=== PATIENT | male | born 1960 | race Caucasian/White ===

== ENCOUNTER 2016-11-26 21:33 | Observation (INO) | payer MEDICAID, MEDICARE ==
[~2016-11-26] VITALS: Ht 172.7 cm; Wt 120.0 kg
[~2016-11-26 21:33] MED LIST: ASPI81TA11 PO; CEPH500C3 PO; GLUCTAB PO; HYDR-3533 PO; LEVEMIR SQ; LISI-357 PO; OMPR20CCR PO; TRAZ50TA4 PO; Z.0.WALKERFRONT
[2016-11-26 21:43] VITALS: BP 163/95; PULSE 78; RESP 24; TEMP 98.9; O2SAT 98
[2016-11-26 21:51] VITALS: BP 168/94; PULSE 74; RESP 16; TEMP 98.4; O2SAT 97
[2016-11-26] MEDS ORDERED: ONDANSETRON HCL 4 MG/2 ML VIAL ONE (22:06)
[2016-11-26] MEDS ORDERED: MORPHINE SULFATE 4 MG/ML INJ IV PUSH ONE (22:15)
[2016-11-26] MEDS ORDERED: ONDANSETRON HCL 4 MG/2 ML VIAL IV PUSH ONE (22:15)
[2016-11-26] MEDS ORDERED: ORPHENADRINE INJ 60 MG/2 ML AMP IM ONE (22:15)
--- NOTE | 2016-11-26 22:19 | RADRPT ---
EXAM DATE/TIME: 11/26/2016 21:45 [facility] COMPARISON: CHEST SINGLE AP, September 06, 2015, 1:46. INDICATIONS : Short of breath. MEDICAL HISTORY : None. SURGICAL HISTORY : None. ENCOUNTER: Initial ACUITY: 1 day PAIN SCORE: 0/10 LOCATION: Bilateral chest FINDINGS: The lungs are clear without infiltrate, nodule, or mass. There is no appreciable pleural effusion fo r technique. Heart and mediastinum are unremarkable. CONCLUSION: No acute cardiopulmonary disease. Mecca Kc MD on November 26, 2016 at 22:17 Board Certified Radiologist. This report was verified electronically.
--- NOTE | 2016-11-26 22:27 | RADRPT ---
EXAM DATE/TIME: 11/26/2016 22:17 [facility] COMPARISON: CT BRAIN W/O CONTRAST, August 06, 2015, 0:04. INDICATIONS : Cephalgia. Unable to ambulate. Right side weakness. RADIATION DOSE: 37.48 CTDIvol (mGy) MEDICAL HISTORY : Stroke. Myocardial infarction. Hepatitis C.Diabetes. SURGICAL HISTORY : None. ENCOUNTER: Initial ACUITY: 1 day PAIN SCALE: 10/10 LOCATION: cranial TECHNIQUE: Multiple contiguous axial images were obtained of the head. Using automated exposure control and adj ustment of the mA and/or kV according to patient size, radiation dose was kept as low as reasonably a chievable to obtain optimal diagnostic quality images. DICOM format image data is available electro nically for review and comparison. FINDINGS: There is no evidence for intracranial hemorrhage, mass effect, mass lesions, edema, or extra-axial fl uid collections. The visualized bony structures appear intact. The ventricles are normal size for t he patient's age. There are no signs of acute infarction for technique. There are punctate lucencies in the patient's skull chronic in nature and not significantly changed of indeterminate etiology. CONCLUSION: There is no evidence of any significant hemorrhage or mass effect. Mecca Kc MD on November 26, 2016 at 22:24 Board Certified Radiologist. This report was verified electronically.
[2016-11-26] MEDS ORDERED: LISI-515 PO (22:37)
[2016-11-26] MEDS ORDERED: PROP40TA3 PO (22:37)
[2016-11-26] MEDS ORDERED: PARO20TA2 PO (22:37)
[2016-11-26] MEDS ORDERED: POTA10CA PO (22:37)
[2016-11-26] MEDS ORDERED: ATOR40TA16 PO (22:37)
[2016-11-26] MEDS ORDERED: METF500T PO (22:37)
[2016-11-26] MEDS ORDERED: RISP0.5T2 PO (22:37)
[2016-11-26] MEDS ORDERED: HYDR12.56 PO (22:37)
[2016-11-26] MEDS ORDERED: PANT40TA3 PO (22:37)
[2016-11-26] MEDS ORDERED: CELE1CAP6 PO (22:37)
[2016-11-26] MEDS ORDERED: FOLI1TAB6 PO (22:37)
[2016-11-26] MEDS ORDERED: GABA100C4 PO (22:37)
--- NOTE | 2016-11-26 22:40 | PD ---
HPI Chief Complaint: Chest Pain Time Seen by Provider: 21:51 Travel History International Travel<30 days: No Contact w/Intl Traveler<30days: No Traveled to known affect area: No History of Present Illness HPI 55-year-old male brought in by EMS with unusual story of seen spots of light in front of his eyes and then falling backwards hitting the back of his head. Patient supposedly has a history of CVA with right-sided weakness of the arm and leg. Patient also complaining of right-sided back spasms since his fall. Patient states a local passerby helped him up after he fell and he called the ambulance. Patient states no headache although he does have tenderness in the posterior scalp. He states the visual disturbances he was having are now improved. His biggest complaint is of his back pain and spasm. Patient reportedly lives in [place], but sees his doctor in [place]. Patient is allergic to diphenhydramine [facility] Past Medical History Hx Anticoagulant Therapy: No Arthritis: No Asthma: Yes Autoimmune Disease: No Blood Disorders: No Heart Rhythm Problems: No Cancer: No High Cholesterol: Yes Chemotherapy: No Chest Pain: Yes Congestive Heart Failure: No Cerebrovascular Accident: Yes (RIGHT SIDED WEAKNESS) Diabetes: Yes Patient Takes Glucophage: Yes Diminished Hearing: No Endocrine: Yes Gastrointestinal Disorders: Yes (ESPOHOGEAL VERICIES) GERD: No Genitourinary: No Hepatitis: Yes (HEP C previous) Hiatal Hernia: No Hypertension: No Immune Disorder: No Kidney Stones: No Musculoskeletal: No Neurologic: No Psychiatric: No Reproductive: No Respiratory: Yes Immunizations Current: Yes Myocardial Infarction: No Radiation Therapy: No Sleep Apnea: Yes Thyroid Disease: No Ulcer: No Tetanus Vaccination: Unknown Influenza Vaccination: Yes Past Surgical History Abdominal Surgery: No Cardiac Surgery: No Cholecystectomy: Yes Ear Surgery: No Endocrine Surgery: No Eye Surgery: No Genitourinary Surgery: No Gynecologic Surgery: No Neurologic Surgery: Yes (L1 L3 SURGERY APPROX 2 1/[address] BLUM) Thoracic Surgery: No Other Surgery: Yes Social History Alcohol Use: Yes (DAILY) Tobacco Use: No Substance Use: No Allergies-Medications (Allergen,Severity, Reaction): Coded Allergies: diphenhydramine (Unverified Allergy, Severe, Anaphylaxis, 09/24/16) Reported Meds & Prescriptions Reported Meds & Active Scripts Active Reported Metformin (Metformin HCl) 500 Mg Tab 500 Mg PO BIDPC Pantoprazole (Pantoprazole Sodium) 40 Mg Tab 40 Mg PO DAILY Paroxetine (Paroxetine HCl) 20 Mg Tab 20 Mg PO DAILY Propranolol (Propranolol HCl) 40 Mg Tab 40 Mg PO Q12HR Gabapentin 100 Mg Cap 100 Mg PO DAILY Folic Acid 1 Mg Tablet 1 Tab PO DAILY Lisinopril 20 Mg Tab 20 Mg PO DAILY Risperidone 0.5 Mg Tab 0.5 Mg PO Q12HR Potassium Chloride ER (Potassium Chloride) 10 Meq Cap 10 Meq PO DAILY Review of Systems Except as stated in HPI: all other systems reviewed are Neg General / Constitutional: No: Fever Eyes: No: Visual changes HENT: No: Headaches Cardiovascular: No: Chest Pain or Discomfort Respiratory: No: Shortness of Breath Gastrointestinal: No: Abdominal Pain Genitourinary: No: Dysuria Musculoskeletal: No: Pain Skin: No Rash Neurologic: No: Weakness Psychiatric: No: Depression Endocrine: No: Polydipsia Hematologic/Lymphatic: No: Easy Bruising Physical Exam Narrative GENERAL: Patient appears to be pain out of proportion which is intermittent and apparently spasmodic. SKIN: Warm and dry. Normal color. Normal turgor. No signs of trauma. HEAD: Atraumatic. Normocephalic. No obvious signs of contusion or abrasion although patient complains of discomfort with palpation of the lower posterior scalp. EYES: Pupils equal and round. No scleral icterus. No injection or drainage. ENT: No nasal bleeding or discharge. Mucous membranes pink and moist. No dental injury. Pharynx is clear. Airway is patent. NECK: Trachea midline. No bony tenderness or step-off. Range of motion is supple. CARDIOVASCULAR: Regular rate and rhythm. RESPIRATORY: No accessory muscle use. Clear to auscultation. Breath sounds equal bilaterally. GASTROINTESTINAL: Abdomen soft, non-tender, nondistended. Hepatic and splenic margins not palpable. MUSCULOSKELETAL: Extremities without clubbing, cyanosis, or edema. No obvious deformities. Patient complains of pain with palpation of the soft tissues of the right upper trapezius and lower thoracic and lumbar spine on the right. Patient is noted to be moving his right lower leg and arm when distracted. There are no abrasions or open wounds. NEUROLOGICAL: Awake and alert. No obvious cranial nerve deficits. Motor grossly within normal limits. Five out of 5 muscle strength in the arms and legs. Normal speech. PSYCHIATRIC: Appropriate mood and affect; insight and judgment normal. Data Data Last Documented VS Vital Signs Date Time Temp Pulse Resp B/P (MAP) Pulse Ox O2 Delivery O2 Flow Rate FiO2 11/27/16 00:35 78 18 156/77 (103) 98 Room Air 11/26/16 21:51 98.4 2.00 Orders Orders Electrocardiogram (11/26/16 21:40) Complete Blood Count With Diff (11/26/16 21:40) Ckmb (Isoenzyme) Profile (11/26/16 21:40) Troponin I (11/26/16 21:40) Chest, Single Ap (11/26/16 21:40) Iv Access Insert/Monitor (11/26/16 21:40) Ecg Monitoring (11/26/16 21:40) Oxygen Administration (11/26/16 21:40) Oximetry (11/26/16 21:40) Ct Brain W/O Iv Contrast(Rout) (11/26/16 22:01) Orphenadrine Inj (Norflex Inj) (11/26/16 22:15) Morphine Inj (Morphine Inj) (11/26/16 22:15) Comprehensive Metabolic Panel (11/26/16 22:01) Coag Profile (11/26/16 22:01) Ondansetron Inj (Zofran Inj) (11/26/16 22:15) Ondansetron Inj (Zofran Inj) (11/26/16 22:06) Potassium Chloride (Kcl) (11/26/16 23:45) CKMB (11/26/16 22:15) CKMB% (11/26/16 22:15) Place In Observation (11/27/16 ) Vital Signs (Adult) Q4H (11/27/16 02:39) Activity Oob With Assistance (11/27/16 02:39) Fabricating Machine Operator / Telemetry .CONTINUOUS (11/27/16 02:39) Sodium Chloride 0.9% Flush (Ns Flush) (11/27/16 02:45) Sodium Chloride 0.9% Flush (Ns Flush) (11/27/16 09:00) Ondansetron Inj (Zofran Inj) (11/27/16 02:45) Basic Metabolic Panel (Bmp) (11/28/16 06:00) Complete Blood Count With Diff (11/28/16 06:00) Pt Request For Service (11/27/16 02:39) Case Management Consult (11/27/16 02:39) Naloxone Inj (Narcan Inj) (11/27/16 02:45) ^ Other Nursing Orders (11/27/16 02:43) Admit Order (Ed Use Only) (11/27/16 02:42) Vital Signs (Adult) Q4H (11/27/16 02:42) Activity Bed Rest (11/27/16 02:42) Notify Dr: Other (11/27/16 02:42) Labs Laboratory Tests Test 11/26/16 03:29 11/26/16 22:15 White Blood Count 7.4 TH/MM3 Red Blood Count 4.71 MIL/MM3 Hemoglobin 13.8 GM/DL Hematocrit 39.2 % Mean Corpuscular Volume 83.2 FL Mean Corpuscular Hemoglobin 29.3 PG Mean Corpuscular Hemoglobin Concent 35.2 % Red Cell Distribution Width 14.8 % Platelet Count 117 TH/MM3 Mean Platelet Volume 7.5 FL Neutrophils (%) (Auto) 50.1 % Lymphocytes (%) (Auto) 29.0 % Monocytes (%) (Auto) 14.5 % Eosinophils (%) (Auto) 5.9 % Basophils (%) (Auto) 0.5 % Neutrophils # (Auto) 3.7 TH/MM3 Lymphocytes # (Auto) 2.2 TH/MM3 Monocytes # (Auto) 1.1 TH/MM3 Eosinophils # (Auto) 0.4 TH/MM3 Basophils # (Auto) 0.0 TH/MM3 CBC Comment DIFF FINAL Differential Comment Prothrombin Time 12.0 SEC Prothromb Time International Ratio 1.1 RATIO Activated Partial Thromboplast Time 25.4 SEC Blood Urea Nitrogen 7 MG/DL Creatinine 1.18 MG/DL Random Glucose 103 MG/DL Total Protein 8.0 GM/DL Albumin 3.5 GM/DL Calcium Level 8.7 MG/DL Alkaline Phosphatase 131 U/L Aspartate Amino Transf (AST/SGOT) 46 U/L Alanine Aminotransferase (ALT/SGPT) 40 U/L Total Bilirubin 2.0 MG/DL Sodium Level 135 MEQ/L Potassium Level 3.0 MEQ/L Chloride Level 101 MEQ/L Carbon Dioxide Level 22.4 MEQ/L Anion Gap 12 MEQ/L Estimat Glomerular Filtration Rate 65 ML/MIN Total Creatine Kinase 352 U/L Creatine Kinase MB 7.2 NG/ML Creatine Kinase MB % 2.0 % Troponin I 0.02 NG/ML MDM Medical Decision Making Medical Screen Exam Complete: Yes Emergency Medical Condition: Yes Medical Record Reviewed: Yes Differential Diagnosis Possible TIA. CVA. Fall. Malingering. Migraine syndrome. Muscle spasm. Back pain. Narrative Course Patient is medically stable at time of exam per Chest x-ray and cardiac panel and CBC CMP are ordered per protocol. CT of the head without contrast is ordered. IV access is obtained patient is given 4 mg morphine IV as well as milligrams Zofran IV as well as 60 mg Norflex IM. Chest x-ray is unremarkable for acute process. EKG shows normal sinus rhythm without ST changes. CBC, CMP are unremarkable. Troponin is negative CT of the head is negative for acute process per radiologist. 2300 hrs., patient is discussed with Dr. Tran and care of the patient is turned over to him for final disposition. Scripts Thiamine (Vitamin B-1) 100 Mg Tab 100 MG PO DAILY for Nutritional Supplement, #30 TAB 0 Refills Prov: Vlad Duggan MD 11/28/16 Condition: Stable Adi Olmstead Nov 26, 2016 22:40
[2016-11-26] MEDS ORDERED: CYCL1TAB29 PO (22:42)
[2016-11-26] MEDS ORDERED: TRAM50TA PO (22:42)
[2016-11-26 22:45] LABS: ALT (GPT) 40 U/L (12-78); ANION GAP 12 MEQ/L (5-15); AST (GOT) 46 U/L (15-37); BICARBONATE 22.4 MEQ/L (21.0-32.0); BLOOD UREA NITROGEN 7 MG/DL (7-18); CHLORIDE 101 MEQ/L (98-107); GLOMERULAR FILTRATION RATE 65 ML/MIN (>89); SODIUM (NA) 135 MEQ/L (136-145)
[2016-11-26 22:47] LABS: ALKALINE PHOSPHATASE 131 U/L (45-117)
[2016-11-26 22:48] LABS: APTT (PATIENT) 25.4 SEC (24.3-30.1); INTERNATIONAL NORMALIZED RATIO 1.1 RATIO
[2016-11-26] MEDS ORDERED: POTASSIUM CHLORIDE 10 MEQ CONTROLLED RELEASE TAB PO ONE (23:45)
[2016-11-27] VITALS (11 sets, daily range): BP systolic 107–160; BP diastolic 58–87; PULSE 60–78; RESP 18–20; TEMP 97.4–98.2; O2SAT 95–98
[2016-11-27 01:54] LABS: CKMB 7.2 NG/ML (0.5-3.6)
--- NOTE | 2016-11-27 02:42 | PD ---
Physical Exam Narrative GENERAL: SKIN: Warm and dry. HEAD: Atraumatic. Normocephalic. EYES: Pupils equal and round. No scleral icterus. No injection or drainage. ENT: No nasal bleeding or discharge. Mucous membranes pink and moist. NECK: Trachea midline. No JVD. CARDIOVASCULAR: Regular rate and rhythm. RESPIRATORY: No accessory muscle use. Clear to auscultation. Breath sounds equal bilaterally. GASTROINTESTINAL: Abdomen soft, non-tender, nondistended. Hepatic and splenic margins not palpable. MUSCULOSKELETAL: Extremities without clubbing, cyanosis, or edema. No obvious deformities. NEUROLOGICAL: Awake and alert. PATIENT IS NOT MOVING HIS RIGHT UE AND RLE BUT HAS GREAT TONE, REFLEXES ABNL BECAUSE PT IS HOLDING EXTREMITY STIFF. ARM DROP TEST FAILED FIRST BUT REPEAT TESTING PATIENT. NO FLACCIDITY NOTED. PSYCHIATRIC: Appropriate mood and affect; insight and judgment normal. Data Data Last Documented VS Vital Signs Date Time Temp Pulse Resp B/P (MAP) Pulse Ox O2 Delivery O2 Flow Rate FiO2 11/27/16 00:35 78 18 156/77 (103) 98 Room Air 11/26/16 21:51 98.4 2.00 Orders Orders Electrocardiogram (11/26/16 21:40) Complete Blood Count With Diff (11/26/16 21:40) Ckmb (Isoenzyme) Profile (11/26/16 21:40) Troponin I (11/26/16 21:40) Chest, Single Ap (11/26/16 21:40) Iv Access Insert/Monitor (11/26/16 21:40) Ecg Monitoring (11/26/16 21:40) Oxygen Administration (11/26/16 21:40) Oximetry (11/26/16 21:40) Ct Brain W/O Iv Contrast(Rout) (11/26/16 22:01) Orphenadrine Inj (Norflex Inj) (11/26/16 22:15) Morphine Inj (Morphine Inj) (11/26/16 22:15) Comprehensive Metabolic Panel (11/26/16 22:01) Coag Profile (11/26/16 22:01) Ondansetron Inj (Zofran Inj) (11/26/16 22:15) Ondansetron Inj (Zofran Inj) (11/26/16 22:06) Potassium Chloride (Kcl) (11/26/16 23:45) CKMB (11/26/16 22:15) CKMB% (11/26/16 22:15) Labs Laboratory Tests Test 11/26/16 22:15 Prothrombin Time 12.0 SEC Prothromb Time International Ratio 1.1 RATIO Activated Partial Thromboplast Time 25.4 SEC Blood Urea Nitrogen 7 MG/DL Creatinine 1.18 MG/DL Random Glucose 103 MG/DL Total Protein 8.0 GM/DL Albumin 3.5 GM/DL Calcium Level 8.7 MG/DL Alkaline Phosphatase 131 U/L Aspartate Amino Transf (AST/SGOT) 46 U/L Alanine Aminotransferase (ALT/SGPT) 40 U/L Total Bilirubin 2.0 MG/DL Sodium Level 135 MEQ/L Potassium Level 3.0 MEQ/L Chloride Level 101 MEQ/L Carbon Dioxide Level 22.4 MEQ/L Anion Gap 12 MEQ/L Estimat Glomerular Filtration Rate 65 ML/MIN Total Creatine Kinase 352 U/L Creatine Kinase MB 7.2 NG/ML Creatine Kinase MB % 2.0 % Troponin I 0.02 NG/ML MDM Medical Record Reviewed: Yes Supervised Visit with ROSE: No Physician Communication Physician Communication D/W DR DEWITT HOSPITALIST, WILL ADMIT, NEURO EVAL BUT NO PAIN MEDICATION AT ALL DURING ENTIRE EVAL PERIOD (THIS WAS SHARED WITH PATIENT WHO ACCEPTED THE TERMS) Diagnosis Primary Impression: RIGHT SIDED HEMIPLEGIA V CONVERSION DISORDER Admitting Information Admitting Physician Requests: Nino Hidalgo MD Nov 27, 2016 02:42
[2016-11-27] MEDS ORDERED: NALOXONE HCL 0.4 MG/ML AMP IV PUSH PRN (02:45)
[2016-11-27] MEDS ORDERED: ONDANSETRON HCL 4 MG/2 ML VIAL IVP PRN (02:45)
[2016-11-27] MEDS ORDERED: SODIUM CHLORIDE 0.9% FLUSH 10 ML FLUSH IV FLUSH PRN (02:45)
[2016-11-27] MEDS ORDERED: GADODIAMIDE PF 287 MG/ML 5 ML VIAL (for RAD MRI) IVCONTRAST ONE (02:46)
[2016-11-27 04:04] LABS: AUTOMATED NEUTROPHIL # 3.7 TH/MM3 (1.8-7.7); BASOPHIL % 0.5 % (0.0-2.0); EOSINOPHIL # 0.4 TH/MM3 (0-0.4); EOSINOPHIL % 5.9 % (0.0-4.0); HEMATOCRIT 39.2 % (39.0-51.0); HEMO FLAGS DIFF FINAL; LYMPHOCYTE # 2.2 TH/MM3 (1.0-4.8); MEAN CELL VOLUME 83.2 FL (80.0-100.0); MEAN CORPUSCULAR HEMOGLOBIN 29.3 PG (27.0-34.0); MEAN CORPUSCULAR HGB CONC 35.2 % (32.0-36.0); MONO % 14.5 % (0.0-8.0); NEUT % 50.1 % (16.0-70.0); PLATELET COUNT 117 TH/MM3 (150-450); RED BLOOD COUNT 4.71 MIL/MM3 (4.50-5.90); RED CELL DISTRIBUTION WIDTH 14.8 % (11.6-17.2); WHITE BLOOD COUNT 7.4 TH/MM3 (4.0-11.0)
[2016-11-27] MEDS: SODIUM CHLORIDE 0.9% FLUSH 10 ML FLUSH IV FLUSH SCH ×2 (09:14→21:00)
--- NOTE | 2016-11-27 10:45 | HHI.HP ---
HPI Service [facility] Primary Care Physician Unknown Admission Diagnosis CONVERSION DISORDER V RIGHT SIDED HEMIPLEGIA Diagnoses: Chief Complaint: right sided weakness Travel History International Travel<30 Days: No Contact w/Intl Traveler <30 Da: No Traveled to Known Affected Are: No History of Present Illness Written by Laura Suggs, acting as scribe for Dr. Duggan on 11/27/16 at 10: 42. 55-year-old male with history of diabetes, cirrhosis, varices, depression, neuropathy, chronic back pain, presents with acute onset right sided weakness. The patient states yesterday he started arguing with his significant other. He started walking down [facility] around 10pm when he all of a sudden saw a light, unsure if it was a car, then the next thing he remembers is his legs getting weak and hitting the floor. He denies any loss of consciousness. Denies hitting his head. He was unable to get off the ground with significant right sided weakness. He states he has numbness all the way down his right leg. He denies any chest pain, shortness of breath, lightheadedness, or dizziness. He had a mild headache last night but improved today. Denies any visual changes. Denies any abdominal pain, constipation, diarrhea, or dysuria. He denies any other medical complaints at this time. Review of Systems Except as stated in HPI: all other systems reviewed are Neg Past Family Social History Past Medical History Cirrhosis Varices GI bleed Diabetes Hypertension Hyperlipidemia Depression Neuropathy Chronic back pain Past Surgical History Cholecystectomy Reported Medications Metformin (Metformin HCl) 500 Mg Tab 500 Mg PO BIDPC Pantoprazole (Pantoprazole Sodium) 40 Mg Tab 40 Mg PO DAILY Paroxetine (Paroxetine HCl) 20 Mg Tab 20 Mg PO DAILY Propranolol (Propranolol HCl) 40 Mg Tab 40 Mg PO Q12HR Celecoxib 100 Mg Cap 100 Mg PO BID Gabapentin 100 Mg Cap 100 Mg PO DAILY Folic Acid 1 Mg Tablet 1 Tab PO DAILY Hydrochlorothiazide 12.5 Mg Tab 12.5 Mg PO DAILY Lisinopril 20 Mg Tab 20 Mg PO DAILY Atorvastatin (Atorvastatin Calcium) 40 Mg Tab 40 Mg PO HS Risperidone 0.5 Mg Tab 0.5 Mg PO Q12HR Potassium Chloride ER (Potassium Chloride) 10 Meq Cap 10 Meq PO DAILY Allergies: Coded Allergies: diphenhydramine (Unverified Allergy, Severe, Anaphylaxis, 09/24/16) Active Ordered Medications Current Medications Medications (Trade) Dose Ordered Sig/Xochitl Route Start Time Stop Time Status Last Admin (NS Flush) 2 ml UNSCH PRN IV FLUSH 11/27/16 02:45 (NS Flush) 2 ml BID IV FLUSH 11/27/16 09:00 11/27/16 09:14 (Zofran Inj) 4 mg Q6H PRN IVP 11/27/16 02:45 (Narcan Inj) 0.4 mg UNSCH PRN IV PUSH 11/27/16 02:45 Family History Father with 3 or 4 strokes, and heart disease that started in his 50s Mother fairly healthy Social History Smoked tobacco 1/2 PPD for 10 years, quit 2 years ago Prior alcohol use 2-3 beers occasionally, quit 3-4 months ago because his doctor told him he has cirrhosis of the liver Denies any illicit drug use Used to paint, now on Social Security/Disability Physical Exam Vital Signs Vital Signs Date Time Temp Pulse Resp B/P (MAP) Pulse Ox O2 Delivery O2 Flow Rate FiO2 11/27/16 07:43 98.1 63 18 135/73 (93) 97 11/27/16 07:11 64 11/27/16 04:49 11/27/16 04:47 97.4 64 20 107/58 (74) 96 11/27/16 00:35 78 18 156/77 (103) 98 Room Air 11/26/16 21:51 98.4 74 16 168/94 (118) 97 Nasal Cannula 2.00 11/26/16 21:51 98 Nasal Cannula 2.00 11/26/16 21:51 98 Nasal Cannula 2.00 11/26/16 21:43 98.9 78 24 163/95 (117) 98 Physical Exam GENERAL: Well-nourished, well-developed middle aged male patient in [facility]. SKIN: Warm and dry. No rash. HEAD: Normocephalic. Atraumatic. EYES: Pupils equal and round. No scleral icterus. No injection or drainage. ENT: No nasal bleeding or discharge. Mucous membranes pink and moist. NECK: Supple. Trachea midline. CARDIOVASCULAR: Regular rate and rhythm. S1, S2 noted. No murmur appreciated. RESPIRATORY: No accessory muscle use. Clear to auscultation. Breath sounds equal bilaterally. GASTROINTESTINAL: Abdomen soft, non-tender, nondistended. Normoactive bowel sounds x4. MUSCULOSKELETAL: No obvious deformities. Extremities without clubbing, cyanosis , or edema. NEUROLOGICAL: Awake and alert. No obvious cranial nerve deficits. Motor grossly within normal limits. Patient able to move RUE on distraction but does not participate in strength testing. Right leg flaccid. 5/5 strength LUE/LLE. Absent patellar DTRs bilaterally. Normal speech. PSYCHIATRIC: Appropriate mood and affect; insight and judgment normal. Laboratory Laboratory Tests Test 11/26/16 22:15 Prothrombin Time 12.0 Prothromb Time International Ratio 1.1 Activated Partial Thromboplast Time 25.4 Blood Urea Nitrogen 7 Creatinine 1.18 Random Glucose 103 Total Protein 8.0 Albumin 3.5 Calcium Level 8.7 Alkaline Phosphatase 131 Aspartate Amino Transf (AST/SGOT) 46 Alanine Aminotransferase (ALT/SGPT) 40 Total Bilirubin 2.0 Sodium Level 135 Potassium Level 3.0 Chloride Level 101 Carbon Dioxide Level 22.4 Anion Gap 12 Estimat Glomerular Filtration Rate 65 Total Creatine Kinase 352 Creatine Kinase MB 7.2 Creatine Kinase MB % 2.0 Troponin I 0.02 Result Diagram: 11/26/16 0329 11/26/162214 Imaging Last Impressions Head CT 11/26/162200 Signed Impressions: Service Date/Time: Saturday, November 26, 2016 22:17 - CONCLUSION: There is no evidence of any significant hemorrhage or mass effect. Mecca Kc MD Chest X-Ray 11/26/162139 Signed Impressions: Service Date/Time: Saturday, November 26, 2016 21:45 - CONCLUSION: No acute cardiopulmonary disease. Mecca Kc MD Caprini VTE Risk Assessment Caprini VTE Risk Assessment: Mod/High Risk (score >= 2) Caprini Risk Assessment Model Point Value = 1 Point Value = 2 Point Value = 3 Point Value = 5 Age 41-60 Minor surgery BMI > 25 kg/m2 Swollen legs Varicose veins or History of unexplained or recurrent spontaneous Oral contraceptives or hormone replacement Sepsis (< 1 month) Serious lung disease, including pneumonia (< 1 month) Abnormal pulmonary function Acute myocardial infarction Congestive heart failure (< 1 month) History of inflammatory bowel disease Medical patient at bed rest Age 61-74 Arthroscopic surgery Major open surgery (> 45 min) Laparoscopic surgery (> 45 min) Malignancy Confined to bed (> 72 hours) Immobilizing plaster cast Central venous access Age >= 75 History of VTE Family history of VTE Factor V Leiden Prothrombin [id number] Lupus anticoagulant Anticardiolipin antibodies Elevated serum homocysteine Heparin-induced thrombocytopenia Other congenital or acquired thrombophilia Stroke (< 1 month) Elective arthroplasty Hip, pelvis, or leg fracture Acute spinal cord injury (< 1 month) Prophylaxis Regimen Total Risk Factor Score Risk Level Prophylaxis Regimen 0-1 Low Early ambulation 2 Moderate Order ONE of the following: *Sequential Compression Device (SCD) *Heparin 5000 units SQ BID 3-4 Higher Order ONE of the following medications: *Heparin 5000 units SQ TID *Enoxaparin/Lovenox 40 mg SQ daily (WT < 150 kg, CrCl > 30 mL/min) *Enoxaparin/Lovenox 30 mg SQ daily (WT < 150 kg, CrCl > 10-29 mL/min) *Enoxaparin/Lovenox 30 mg SQ BID (WT < 150 kg, CrCl > 30 mL/min) AND/OR *Sequential Compression Device (SCD) 5 or more Highest Order ONE of the following medications: *Heparin 5000 units SQ TID (Preferred with Epidurals) *Enoxaparin/Lovenox 40 mg SQ daily (WT < 150 kg, CrCl > 30 mL/min) *Enoxaparin/Lovenox 30 mg SQ daily (WT < 150 kg, CrCl > 10-29 mL/min) *Enoxaparin/Lovenox 30 mg SQ BID (WT < 150 kg, CrCl > 30 mL/min) AND *Sequential Compression Device (SCD) Assessment and Plan Problem List: (1) Acute right-sided weakness ICD Code: M62.89 - Other specified disorders of muscle Assessment and Plan 55-year-old male with history of diabetes, cirrhosis, varices, depression, neuropathy, chronic back pain, presents with acute onset right sided weakness. Right Sided Hemiparesis: unclear etiology, need to rule out CVA, however possible component of conversion disorder as symptoms began immediately after argument with significant other and patient has nowhere to go. -Head CT and CXR images reviewed, no acute findings -Continue neuro checks, fall precautions -Check lipid panel, A1c, UDS -Monitor on telemetry -Consult PT/OT -Consult neurology -Consider psychiatry consult if work up unremarkable -Case management to assist with discharge planning Diabetes: chronic, stable -hold patient's metformin for now -monitor Accu-checks, cover with SSI Acute Renal Insufficiency: Cr 1.18, previously 09.72 in 2016. Suspect secondary to dehydration and poor oral intake. Patient ambulating outside for hours prior to arrival. -give IVF with NS 100cc/hr x1bag -repeat BMP in am -hold patient's HCTZ, avoid nephrotoxins Hypokalemia: K 3.0, suspect secondary to decrease oral intake -replaced with po KCl -monitor BMP, replace electrolytes as needed Mild Elevation of CPK: CPK 352. -give IVF and encourage oral hydration -repeat CPK for trend Depression/Mood Disorder: chronic -continue patient's paxil and risperdal Cirrhosis/Varices: with hx of GI bleed. Chronic. -continue patient's propranolol and protonix Hypertension/Hyperlipidemia: chronic, stable -continue patient's lisinopril and lipitor -held HCTZ for now with renal insufficiency DVT Prophylaxis: teds/SCDs Discussed Condition With Patient, RN Attending Statement This note was transcribed by [email or web address] [Laura Suggs]. I, Dr. Vlad Duggan personally performed the history, physical exam, and medical decision making; and confirmed the accuracy of the information in the transcribed note. Authenticated by Dr. Vlad Duggan on 11/27/16 at 17:06. Laura Suggs PA-C Nov 27, 2016 10:45 Vlad Duggan MD Nov 27, 2016 17:07
[2016-11-27] MEDS ORDERED: DEXTROSE 50% IN WATER 50 ML VIAL(D50) IV PUSH PRN (12:00)
[2016-11-27] MEDS ORDERED: SODIUM CHLOR 0.9% 1000 ML INJ 1,000 ML IV SCH (12:00)
[2016-11-27] MEDS: INSULIN ASPART SUPPLEMENTAL SCALE SQ SCH ×3 (12:00→22:39)
[2016-11-27] MEDS ORDERED: GLUCAGON 1 MG/ML VIAL OTHER PRN (12:00)
--- NOTE | 2016-11-27 14:00 | EKG ---
Date Performed: 11/26/2016 Time Performed: 21:42:38 PTAGE: 55 years EKG: Sinus rhythm WITH FIRST DEGREE AV BLOCK NONSPECIFIC T-WAVE ABNORMALITY ABNORMAL ECG PREVIOUS TRACING : 09/19/2015 02.39 DOCTOR: Dc Slade Interpretating Date/Time 11/27/2016 13:55:29
[2016-11-27 19:03] LABS: CREATINE KINASE 352 U/L (39-308)
[2016-11-27 19:15] LABS: CKMB 3.2 NG/ML (0.5-3.6)
--- NOTE | 2016-11-27 19:43 | MB ---
cc: WESLY MCKEON M.D. DATE OF CONSULTATION 11/27/2016 REASON FOR CONSULTATION Right-sided weakness. HISTORY OF PRESENT ILLNESS Mr. Bautista is a 55-year-old man who yesterday began to notice flashing lights in the right visual field and his back went into a spasm and then he developed weakness and numbness in the right side, right arm and right leg. Denies headaches. He has had persistent weakness on the right without any change. PAST MEDICAL HISTORY 1. History of diabetes. 2. lumbar spondylosis. 3. Cirrhosis. 4. Varices. 5. GI bleed. 6. Neuropathy. 7. Cholecystectomy. MEDICATIONS AT HOME 1. Metformin. 2. Pantoprazole. 3. Paroxetine. 4. Propranolol. 5. Celecoxib. 6. Gabapentin. 7. Folic acid. 8. Hydrochlorothiazide. 9. Lisinopril. 10. Atorvastatin. 11. Risperidone. ALLERGIES DIPHENHYDRAMINE. NEUROLOGIC EXAMINATION VITAL SIGNS: Blood pressure is 156/87, pulse is 62, respirations 20, temperature 97 degrees. Higher cortical functions are normal. Cranial nerves intact. Motor exam he is weak in the right arm and right leg rated at 0/5 proximally and distally with normal strength on the left. He has got diminished sensation on the right arm and right leg. Reflexes 1+ symmetric with no Babinski. IMAGING CT of the brain is normal. LABORATORY DATA White count 7400, hemoglobin 13.8, hematocrit 39.2%, platelet count 117,000. Sodium is 135, potassium is 3.0, chloride 101, CO2 22.4, BUN is 7, creatinine 1.18, GFR 65, glucose 103. AST 46, ALT is 40. Alkaline phos 131. PT 12.0, INR 1.1, APTT 25.4. Tox screen positive for cannabis. IMPRESSION Right-sided weakness, rule out stroke, rule out MS, rule out cervical myelopathy, rule out conversion disorder. RECOMMENDATIONS MRI of brain, MRI cervical spine for further evaluation. MD ALEX Junior/INDIO /5:32 PM /7:28 PM
[2016-11-27] MEDS ORDERED: ATORVASTATIN 40 MG TAB PO SCH (21:00)
--- NOTE | 2016-11-27 21:23 | RADRPT ---
EXAM DATE/TIME: 11/27/2016 20:47 [facility] COMPARISON: CT BRAIN W/O CONTRAST, November 26, 2016, 22:17. INDICATIONS : Right sided weakness. MEDICAL HISTORY : Cirrhosis. Diabetes mellitus type 2. Hypertension. SURGICAL HISTORY : Fusion, lumbar. Colectomy ENCOUNTER: Initial ACUITY: 2 day PAIN SCORE: 0/10 LOCATION: head Please note a normal MRA of the brain does not entirely exclude the possibility of a small aneurysm, nor the possibility of distal intracranial vessel disease. TECHNIQUE: 3D time of flight MRA was performed. Source images, multiplanar STS MIP, and 3D volume MIP reconstru ctions were reviewed. FINDINGS: There is excellent visualization of the major intracranial arteries out to the second-order branch ve ssels. There is no evidence for aneurysm, vessel truncation or stenosis, and no evidence for vascula r malformation. Bilateral posterior communicating arteries and anterior communicating artery are warner nt with the right posterior cerebral artery primarily having its origin off the anterior surface CONCLUSION: Normal examination. Alexandru Montiel MD on November 27, 2016 at 21:18 Board Certified Radiologist. This report was verified electronically.
[2016-11-27] MEDS: PROPRANOLOL HCL 40 MG TAB PO SCH (22:39)
--- NOTE | 2016-11-27 23:10 | RADRPT ---
EXAM DATE/TIME: 11/27/2016 20:47 [facility] COMPARISON: No previous studies available for comparison. INDICATIONS : Radiculopathy. Right sided weakness. MEDICAL HISTORY : Cirrhosis. Hepatitis C. Diabetes mellitus type 2. SURGICAL HISTORY : Fusion, lumbar. Colectomy. ENCOUNTER: Initial ACUITY: 2 day PAIN SCORE: 0/10 LOCATION: neck TECHNIQUE: Multiplanar, multisequence MRI examination of the cervical spine was performed. FINDINGS: Sagittal images demonstrate normal vertebral body alignment and curvature. No focal areas of marrow r eplacement are identified. The craniocervical junction appears normal. The cord itself is normal in c aliber and signal intensity. Axial images were performed from C2-3 through C7-T1. C2-C3: No significant abnormalities identified. C3-C4: There is mild annular bulge of the disc. There is mild left sided neural foraminal narrowing. There i s mild facet arthritis on the left. There is no significant spinal canal stenosis. C4-C5: There is mild annular bulge of the disc asymmetric to the left. There is no significant spinal canal stenosis. There is mild left sided neural foraminal narrowing. C5-C6: There is mild annular bulge of the disc asymmetric to the left. There is uncovertebral joint hypertro phy on left side. There is moderate neural foraminal narrowing on the left. C6-C7: No significant abnormalities identified. C7-T1: No significant abnormalities identified. CONCLUSION: 1. Degenerative disc disease asymmetric to left maximal at C5-C6 with moderate left-sided foraminal n arrowing. 2. There is no significant spinal canal stenosis. Faustino Ragsdale MD on November 27, 2016 at 23:05 Board Certified Radiologist. This report was verified electronically.
--- NOTE | 2016-11-27 23:16 | RADRPT ---
EXAM DATE/TIME: 11/27/2016 20:47 [facility] COMPARISON: No previous studies available for comparison. INDICATIONS : Right sided weakness. CONTRAST: 24 cc Omniscan (gadodiamide) IV MEDICAL HISTORY : Hypertension. Diabetes mellitus type 2. Cirrhosis. SURGICAL HISTORY : Fusion, lumbar. Cholectomy. ENCOUNTER: Initial ACUITY: 2 day PAIN SCORE: 0/10 LOCATION: head TECHNIQUE: Multiplanar, multisequence MRI of the brain was performed both prior to and following the administrat ion of paramagnetic contrast. FINDINGS: MRI of the brain is performed in sagittal, axial and coronal planes. The craniocervical junction and midline structures are unremarkable. Diffusion weighted images demonstrate no abnormality. There is n o evidence of acute cortical infarction, acute hemorrhage, mass effect or midline shift is seen. Ther e is periventricular hyperintensity on the T2 weighted images consistent with small vessel vascular d isease slightly more than expected in a patient of this age. There is T1 hyperintensity in the cerebr al peduncles as well as in the basal ganglia which can be seen with cirrhosis and hepatic encephalopa thy. Following the administration of contrast no abnormal enhancement is identified. Posterior fossa structures are unremarkable. CONCLUSION: 1. No evidence of acute intracranial pathology. No masses are identified. 2. Basal ganglia hyperintensity which can be seen with hepatic encephalopathy Faustino Ragsdale MD on November 27, 2016 at 23:09 Board Certified Radiologist. This report was verified electronically.
[2016-11-28] MEDS: CELECOXIB 100 MG CAP PO SCH ×2 (00:53→08:54)
[2016-11-28] MEDS: risperiDONE 0.5 MG TAB PO SCH ×2 (00:54→08:54)
[2016-11-28 03:18] VITALS: BP 139/76; PULSE 60; RESP 18; TEMP 98.2; O2SAT 99
[2016-11-28 04:11] VITALS: PULSE 59
[2016-11-28 07:32] LABS: AUTOMATED NEUTROPHIL # 2.6 TH/MM3 (1.8-7.7); BASOPHIL % 0.7 % (0.0-2.0); EOSINOPHIL # 0.3 TH/MM3 (0-0.4); EOSINOPHIL % 5.7 % (0.0-4.0); HEMATOCRIT 38.4 % (39.0-51.0); LYMPH % 27.9 % (9.0-44.0); LYMPHOCYTE # 1.4 TH/MM3 (1.0-4.8); MEAN CELL VOLUME 82.9 FL (80.0-100.0); MEAN CORPUSCULAR HEMOGLOBIN 29.4 PG (27.0-34.0); MEAN CORPUSCULAR HGB CONC 35.5 % (32.0-36.0); MONO % 13.2 % (0.0-8.0); NEUT % 52.5 % (16.0-70.0); PLATELET COUNT 82 TH/MM3 (150-450); RED BLOOD COUNT 4.63 MIL/MM3 (4.50-5.90); RED CELL DISTRIBUTION WIDTH 15.1 % (11.6-17.2)
[2016-11-28 07:38] LABS: HEMO FLAGS AUTO DIFF
[2016-11-28 07:56] VITALS: BP 170/83; PULSE 60; RESP 18; TEMP 97.7; O2SAT 100
[2016-11-28 08:11] LABS: BICARBONATE 25.8 MEQ/L (21.0-32.0); POTASSIUM 3.2 MEQ/L (3.5-5.1)
[2016-11-28 08:12] LABS: HDL CHOLESTEROL 43.3 MG/DL (40.0-60.0)
[2016-11-28 08:23] LABS: PLATELET ESTIMATE SMEAR LOW (NORMAL)
[2016-11-28 08:24] LABS: PLATELET MORPHOLOGY NORMAL (NORMAL); SCAN/DIFF AUTO DIFF CONFIRMED
[2016-11-28] MEDS: PROPRANOLOL HCL 40 MG TAB PO SCH (08:53)
[2016-11-28] MEDS: INSULIN ASPART SUPPLEMENTAL SCALE SQ SCH (08:54)
[2016-11-28] MEDS: SODIUM CHLORIDE 0.9% FLUSH 10 ML FLUSH IV FLUSH SCH (08:54)
[2016-11-28] MEDS ORDERED: GABAPENTIN 100 MG CAP PO SCH (09:00)
[2016-11-28] MEDS ORDERED: PANTOPRAZOLE SOD 40 MG DELAYED RELEASE TAB PO SCH (09:00)
[2016-11-28] MEDS ORDERED: LISINOPRIL 20 MG TAB PO SCH (09:00)
[2016-11-28] MEDS ORDERED: PARoxetine HCL 20 MG TAB PO SCH (09:00)
[2016-11-28] MEDS ORDERED: POTASSIUM CHLORIDE 10 MEQ CONTROLLED RELEASE TAB PO ONE (10:00)
[2016-11-28] MEDS ORDERED: LACTULOSE SYRUP 20 GM/30 ML CUP PO SCH (10:00)
[2016-11-28] MEDS ORDERED: MAGNESIUM SULFATE 1 GM PREMIX 100 ML IV ONE (10:00)
[2016-11-28] MEDS ORDERED: VITA100T54 PO (10:10)
--- NOTE | 2016-11-28 10:23 | HHI.PR ---
Subjective Remarks And says he has some right-sided neck pain. Continued right-sided paralysis. Denies any chest pain or shortness of breath. I inform the patient that none of his imaging explains his right-sided weakness , there is no physical cause for his symptoms. Upon informing of this, he is able to move his right hand. He declines to speak with a psychiatrist. I asked him, if the hospital could find a place to stay, would he be able to leave the hospital and he confirmed. Upon speaking to the pillowcase cutter, who cannot offer him a hotel, he is not interested in leaving, says he has no place to go. I discussed with pillowcase cutter who will provide him with homeless senior care resources, as well as free transportation. Objective Vital Signs Date Time Temp Pulse Resp B/P (MAP) Pulse Ox O2 Delivery O2 Flow Rate FiO2 11/28/16 07:56 97.7 60 18 170/83 (112) 100 11/28/16 04:11 59 11/28/16 03:18 98.2 60 18 139/76 (97) 99 11/27/16 23:54 60 11/27/16 23:28 97.9 65 18 157/77 (103) 97 11/27/16 20:01 69 11/27/16 19:55 98.2 69 19 160/83 (108) 95 11/27/16 16:16 97.9 62 20 156/87 (110) 95 11/27/16 12:30 63 11/27/16 11:20 98.1 64 18 139/76 (97) 97 I/O 11/27/16 11/27/16 11/27/16 11/28/16 11/28/16 11/28/16 07:00 15:00 23:00 07:00 15:00 23:00 Intake Total 800 ml Balance 800 ml Intake IV Total 800 ml Result Diagram: 11/28/16 0611/28/16 06 Objective Remarks GENERAL: Patient sitting up in bed. Appears comfortable. Alert and oriented 4. After explaining the situation to him, with no physical cause for his right- sided weakness, that this could be psychiatric -he agrees - he is alert and oriented to his medical condition as well. refuses psych consult. SKIN: Warm and dry. HEAD: Normocephalic. EYES: No scleral icterus. No injection or drainage. NECK: Supple, trachea midline. No JVD. CARDIOVASCULAR: Regular rate and rhythm without murmurs, gallops, or rubs. RESPIRATORY: Breath sounds equal bilaterally. No accessory muscle use. GASTROINTESTINAL: Abdomen soft, non-tender, nondistended. MUSCULOSKELETAL: No cyanosis, or edema. NEUROLOGIC. Patient moves right hand on command today. BACK: Nontender without obvious deformity. No CVA tenderness. A/P Assessment and Plan 55-year-old male with history of diabetes, cirrhosis, varices, depression, neuropathy, chronic back pain, presents with acute onset right sided weakness. //Right Sided Hemiparesis: unclear etiology, need to rule out CVA, however possible component of conversion disorder as symptoms began immediately after argument with significant other and patient has nowhere to go. -Head CT and CXR images reviewed, no acute findings -Continue neuro checks, fall precautions -Check lipid panel, A1c, UDS -Monitor on telemetry -Consult PT/OT -Consult neurology -Consider psychiatry consult if work up unremarkable -Case management to assist with discharge planning = Patient able to move his right hand on distraction. Able to move his hand today on exam. //MRI did show basal ganglia or intensity. Likely secondary to chronic drinking. =-Ammonia level only in the 30s. Patient showing no signs of hepatic encephalopathy. Right-sided weakness is not a symptom of hepatic encephalopathy. He is alert and oriented 4. //Diabetes: chronic, stable -hold patient's metformin for now -monitor Accu-checks, cover with SSI //Acute Renal Insufficiency: Cr 1.18, previously 09.72 in 2016. Suspect secondary to dehydration and poor oral intake. Patient ambulating outside for hours prior to arrival. -give IVF with NS 100cc/hr x1bag -repeat BMP in am -hold patient's HCTZ, avoid nephrotoxins = Resolved. //Hypokalemia: K 3.0, suspect secondary to decrease oral intake -replaced with po KCl -monitor BMP, replace electrolytes as needed = Potassium 3.2 today, magnesium 1.5 yesterday. Replace orally. Follow-up primary care //Mild Elevation of CPK: CPK 352. -give IVF and encourage oral hydration -repeat CPK for trend -This could be patient's baseline. //Depression/Mood Disorder: chronic -continue patient's paxil and risperdal = denies any SI. //Cirrhosis/Varices: with hx of GI bleed. Chronic. -continue patient's propranolol and protonix //Hypertension/Hyperlipidemia: chronic, stable -continue patient's lisinopril and lipitor -held HCTZ for now with renal insufficiency = Discontinue HCTZ secondary to hypokalemia. //DVT Prophylaxis: teds/SCDs Discharge Planning Discharge home in good condition. Continue diabetic diet. Activity ad ethan. Please see discharge medication list for medications. Follow-up primary care. Vlad Duggan MD Nov 28, 2016 10:23
[2016-11-28 14:41] LABS: INDIRECT BILIRUBIN 1.3 MG/DL (0.0-0.8); TOTAL BILIRUBIN ADULT 1.8 MG/DL (0.2-1.0)
[2016-11-28 16:20] LABS: HEMOGLOBIN A1a 0.8 %; HEMOGLOBIN A1b 1.9 %; HEMOGLOBIN Ao 83.2 %; HEMOGLOBIN P3 3.4 %
== END 2016-11-28 11:01 | disposition home or self-care (01) ==
LOC: NEPC 21:33 → NEDA 11-27 02:45 → NEPFCDU 11-27 04:44
PROVIDERS: ADMIT Internal Medicine; ATTEND Internal Medicine
DX: R53.1 Weakness (principal); E11.40 Type 2 diabetes mellitus with diabetic neuropathy, unspecified; N28.9 Disorder of kidney and ureter, unspecified; E87.6 Hypokalemia; R20.0 Anesthesia of skin; R51 Headache; M54.2 Cervicalgia; I10 Essential (primary) hypertension; E78.5 Hyperlipidemia, unspecified; M47.816 Spondylosis without myelopathy or radiculopathy, lumbar region; F32.9 Major depressive disorder, single episode, unspecified; K74.60 Unspecified cirrhosis of liver; R07.9 Chest pain, unspecified; M62.830 Muscle spasm of back; M54.9 Dorsalgia, unspecified; I44.0 Atrioventricular block, first degree; H53.9 Unspecified visual disturbance; E78.00 Pure hypercholesterolemia, unspecified; J45.909 Unspecified asthma, uncomplicated; B19.20 Unspecified viral hepatitis C without hepatic coma; G47.30 Sleep apnea, unspecified; Z79.899 Other long term (current) drug therapy; Z79.84 Long term (current) use of oral hypoglycemic drugs; Z87.891 Personal history of nicotine dependence; W19.XXXA Unspecified fall, initial encounter; W22.8XXA Striking against or struck by other objects, initial encounter
CPT/HCPCS: 70450; 70544; 70553; 71010; 72141; 80048; 80053; 80061; 80076; 80307; 82140; 82550; 82552; 82948; 83036; 83735; 84484; 85025; 85610; 85730; 93005; 96361; 96372; 96374; 96375; 97162; 97166; 99285; A9579; G0378; G8987; G8988; J1815; J2270; J2360; J2405; J7030